=== PATIENT | female | born 1985 | race Caucasian/White ===

== ENCOUNTER → 2018-09-16 | Outpatient (CLI) | payer MEDICAID | LOC: FIMAGING 15:43 | PROVIDERS: ATTEND Orthopaedic Surgery | DX: S83.512A Sprain of anterior cruciate ligament of left knee, initial encounter (principal); M94.8X6 Other specified disorders of cartilage, lower leg; M84.861 Other disorders of continuity of bone, right tibia ==

== ENCOUNTER 2018-11-10 06:01 | Day surgery (SDC) | payer MEDICAID ==
--- NOTE | 2018-11-09 20:57 | PDGENHP ---
History and Physical History and Physical: 33 yo female, presenting today for right knee ACL surgery By Dr. James for ACL rpr w/ HS Autograft after tearing her acl on 09/08/18. ALLERGIES Allergy/AdvReac Type Severity Reaction Status Date / Time No Known Allergies Allergy Verified 10/29/18 12:38 MEDS: 5-Htp 10/29/18 [Last Taken Unknown] Co Q-10 10/29/18 [Last Taken Unknown] Cod Liver Oil Softgel 10/29/18 [Last Taken Unknown] Creatine 10/29/18 [Last Taken Unknown] Mag Sulf 10/29/18 [Last Taken Unknown] Vitamin B Complex 10/29/18 [Last Taken Unknown] PMH denies FH: denies pertinent PE a&ox3 cvs: rrr resp: ctab msk: grossly nvid w/ brisk cap refill, grade 1 lachmans w/ a soft end point, minimal pivot shift A/p 33 yo female w/ right knee ACL full thickness tear on 09/08/18, here for right knee ACL surgery w/ hamstring autograft by dr. james. -proph: scd's, diana joyce, incentive spirometry -abx: ancef 2 grams IV pre op -RLE: wbat w/ crutches and brace -f/u 7-10 days post operatively in clinic for wound check, sooner with issues
[2018-11-10] MEDS ORDERED: ceFAZolin 2 GM/DEXTROSE 100 ML IV ONE (06:43)
[2018-11-10] MEDS ORDERED: LR 1,000 ML IV ONE (06:47)
--- NOTE | 2018-11-10 06:49 | PDHPUP ---
History & Physical Update H&P update statement: This history and physical update is based on an assessment of the patient which was completed after admission or registration (within 24 hours), but prior to the surgery/procedure. H&P update: H&P reviewed & patient examined, no change in patient's condition since H&P completed, changes noted
[2018-11-10] MEDS ORDERED: ROPIVACAINE HCL 20 MG/10 ML INJ EP ONE (06:53)
[2018-11-10] MEDS ORDERED: MIDAZOLAM 2 MG/2 ML VIAL IVP ONE (07:02)
--- NOTE | 2018-11-10 07:03 | PDANEPAE ---
ANE History of Present Illness right acl tear ANE Past Medical History - Cardiovascular History Hx Hypertension: No Hx Arrhythmias: No Hx Chest Pain: No Hx Coronary Artery / Peripheral Vascular Disease: No Hx CHF / Valvular Disease: No Hx Palpitations: No Cardiovascular History Comment: ? heart murmur - Pulmonary History Hx COPD: No Hx Asthma/Reactive Airway Disease: No Hx Recent Upper Respiratory Infection: No Hx Oxygen in Use at Home: No Hx Sleep Apnea: No Sleep Apnea Screening Result - Last Documented: Negative - Neurologic History Hx Cerebrovascular Accident: No Hx Seizures: No Hx Dementia: No - Endocrine History Hx Diabetes: No Hypothyroid: No Hyperthyroid: No Obesity: mild - Renal History Hx Renal Disorders: No - Liver History Hx Hepatic Disorders: No - Neurological & Psychiatric Hx Hx Neurological and Psychiatric Disorders: Yes Neurological / Psychiatric History Comment: anxiety - Cancer History Hx Cancer: No - Congenital Disorder History Hx Congenital Disorders: No - GI History GERD: no Hx Gastrointestinal Disorders: No - Other Health History 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 - Chronic Pain History Chronic Pain: No - Surgical History Prior Surgeries: none ANE Review of Systems Review of systems is: negative Review of Systems: - Exercise capacity Exercise capacity: >=4 METS METS (RN): 6 METS ANE Patient History - Allergies Allergies/Adverse Reactions: No Known Allergies Allergy (Verified 10/29/18 12:38) - Home Medications Home medications: home medication list seen and reviewed Home Medications: 5-Htp 10/29/18 [Last Taken 11/03/18] Co Q-10 10/29/18 [Last Taken 11/03/18] Cod Liver Oil Softgel 10/29/18 [Last Taken 11/03/18] Creatine 10/29/18 [Last Taken 11/03/18] Mag Sulf 10/29/18 [Last Taken 11/02/18] Vitamin B Complex 10/29/18 [Last Taken 11/03/18] - NPO status NPO Status: no food or drink >8 hours - Smoking Hx Smoking Status: Former smoker - Family Anes Hx Family Anes Hx: none Family Hx Anesthesia Complications: none ANE Labs/Vital Signs - Vital Signs Height: 171.45 cm Weight: 88.451 kg ANE Physical Exam - Airway Neck exam: FROM Mallampati Score: Class 2 Mouth exam: normal dental/mouth exam - Pulmonary Pulmonary: no respiratory distress, clear to auscultation - Cardiovascular Cardiovascular: regular rate and rhythym - ASA Status ASA Status: I ANE Anesthesia Plan Anesthesia Plan: GA w LMA
[2018-11-10] MEDS ORDERED: PROPOFOL/EMULSION 500 MG/50 ML BOTTLE IV ONE ×3 (07:11→08:34)
[2018-11-10] MEDS ORDERED: fentaNYL 100 MCG/2 ML INJ ONE ×3 (07:14→09:24)
[2018-11-10] MEDS ORDERED: PROPOFOL 200 MG/20 ML VIAL ONE (07:19)
[2018-11-10] MEDS ORDERED: DEXAMETHASONE 4 MG/ML VIAL ONE ×2 (07:21)
[2018-11-10] MEDS ORDERED: ONDANSETRON 4 MG/2 ML VIAL ONE (07:34)
[2018-11-10] MEDS ORDERED: PROMETHAZINE HCL 25 MG/ML INJ IVP PRN (08:16)
[2018-11-10] MEDS ORDERED: LR 500 ML IV PRN (08:16)
[2018-11-10] MEDS ORDERED: oxyCODONE IR 5 MG TAB PO PRN (08:16)
[2018-11-10] MEDS ORDERED: DEXAMETHASONE 4 MG/ML VIAL IVP PRN (08:16)
[2018-11-10] MEDS ORDERED: PHENYLEPHRINE HCL 100 MCG/ML SYR IVP PRN (08:16)
[2018-11-10] MEDS ORDERED: MEPERIDINE 25 MG/0.5 ML AMP IVP PRN (08:16)
[2018-11-10] MEDS ORDERED: NALOXONE HCL 0.4 MG/ML INJ IVP PRN (08:16)
[2018-11-10] MEDS ORDERED: LABETALOL HCL 5 MG/ML 20 ML MDV IVP PRN (08:16)
[2018-11-10] MEDS ORDERED: METOCLOPRAMIDE 10 MG/2 ML VIAL IVP PRN (08:16)
[2018-11-10] MEDS ORDERED: NS 500 ML IV PRN (08:16)
[2018-11-10] MEDS ORDERED: ACETAMINOPHEN 500 MG TAB PO PRN (08:16)
[2018-11-10] MEDS ORDERED: ALBUTEROL 3 ML DEYVIAL IH PRN (08:16)
[2018-11-10] MEDS ORDERED: ONDANSETRON 4 MG/2 ML VIAL IVP PRN (08:16)
[2018-11-10] MEDS ORDERED: KETOROLAC 30 MG/1 ML SDV ONE (09:00)
[2018-11-10] MEDS ORDERED: OXYCODONE/APAP 5/325 TAB PO PRN (09:08)
[2018-11-10] MEDS ORDERED: ACETAMINOPHEN 325 MG TAB PO PRN (09:08)
[2018-11-10] MEDS ORDERED: HYDROCODONE/APAP 5/325 TAB PO PRN (09:08)
[2018-11-10] MEDS ORDERED: D5W 1/2 NS W/ 20 KCl/L 1,000 ML IV SCH (09:15)
--- NOTE | 2018-11-10 09:22 | POSTOPPROG ---
Post Op Note Date of Operation: 11/10/18 Surgeon: Nabila James Radioisotope Technician: abhijit yoon pa-c Anesthesia: GET(General Endotracheal) Pre-op Diagnosis: right knee acl rupture Post-op Diagnosis: right knee acl rupture Indication: full thickness tear right knee acl Procedure: right knee acl reconstruction w/ HS auto, med/lat part menisectomy Inf/Abcess present in the surg proc area at time of surgery?: No EBL: Minimal Drains: Other (none)
[2018-11-10] MEDS: fentaNYL 100 MCG/2 ML INJ IVP PRN ×2 (09:25→09:32)
[2018-11-10] MEDS ORDERED: HYDROmorphONE/DILAUDID 2 MG/ML INJ ONE (09:47)
[2018-11-10] MEDS: HYDROmorphONE/DILAUDID 2 MG/ML INJ IVP PRN ×2 (09:49→10:16)
--- NOTE | 2018-11-10 11:33 | POSTANESTH ---
Post Anesthetic Evaluation Cardiovascular Status: Normal, Stable Respiratory Status: Normal, Stable Level of Consciousness/Mental Status: Can Participate in Eval Pain Control: Adequate, Prn Tx Ordered Nausea/Vomiting Control: Adequate, Prn Tx Ordered Complications Possibly Related to Anesthesia: None Noted
--- NOTE | 2018-11-10 12:30 | GOP ---
[f rep st] OPERATIVE REPORT DATE OF OPERATION: 11/10/2018 SURGEON: Nabila James MD FLORICULTURE PROFESSOR: MARCELINA Mejía. Medically required for positioning of the leg during arthroscopic ACL reconstruction and careful retraction of vital neurovascular structures during semitendinosus harvest . PREOPERATIVE DIAGNOSIS: 1. Right knee full-thickness anterior cruciate ligament tear. 2. Medial and lateral meniscal tears. 3. Synovitis. 4. Loose body. 5. Patellofemoral chondromalacia and arthritis. POSTOPERATIVE DIAGNOSIS: 1. Right knee full-thickness anterior cruciate ligament tear. 2. Medial and lateral meniscal tears. 3. Synovitis. 4. Loose body. 5. Patellofemoral chondromalacia and arthritis. PROCEDURE PERFORMED: 1. Arthroscopic anterior cruciate ligament reconstruction with a quadrupled semitendinosus hamstring autograft. 2. Arthroscopic partial medial and lateral meniscectomy. 3. Arthroscopic extensive synovectomy. 4. Arthroscopic patellar chondroplasty. FINDINGS: ESTIMATED BLOOD LOSS: Minimal. INDICATIONS: A 33-year-old female injured her right knee. Clinical, radiographic and MRI confirm AC L tear. She complains of instability and agrees for stabilization of the right knee. The patient identified in the preoperative holding area. Consent, laterality and preoperative antibi otics were confirmed delivered. All questions were answered. She had full range of motion of her kn ee. Her skin looked healthy. Her family was at the bedside. DESCRIPTION OF PROCEDURE: The patient was brought into the operating room. Adductor canal block by Anesthesia. General anesthesia. All extremities well padded. Right thigh tourniquet placed. Right lower extremity prepped and draped in the usual sterile fashion. Surgical time-out was performed. Hamstring harvest ensued without the use of a tourniquet. Figure-of-4 position. Pes anserinus incis ion. Sharp dissection down with careful cautery of all bleeders. Sartorius fascia was taken in line . Semitendinosus felt robust and we isolated this, freed up the gastroc adhesions. We had a nice ro bust graft, took this onto the back table and fashioned a graft length 10 mm x 66 mm at a 20 Sr m eter tension. We marked 20 mm rossi on either side on the reverse tensioning TightRope sides. Esmarch exsanguination ensued. The arthroscopic portion ensued. Standard 2-portal technique diagnos tic arthroscopy included grade 3 fibrillation of the patella. Grade 1 softening of the trochlea. Th e medial compartment was grade 1 softening cartilage. Inner 3rd fraying of the meniscus. ACL was co mpletely torn with a cyclops lesion. PCL was intact. Lateral compartment was grade 1 with some fiss uring of the lateral tibial plateau and meniscal root fraying of the lateral meniscus. Synovitis thr oughout. Therapeutic arthroscopy included partial medial and lateral meniscectomy. Less than 10% of the inner rim removed. Extensive synovectomy of the anterior medial and lateral compartment. We did an ACL d ebridement. Marked the posterior bifurcate ridge as well as tangential to the anterior horn of the l ateral meniscus. We did have to do a notchplasty about 3 mm secondary to a stenotic V-shaped notch. We drilled with a 10 mm flip cutter two 25 mm holes and parked loops of suture and retrieved these ou t easily. Passed the graft to predetermined 20 mm rossi. Did a flexion-extension cycle of about 20. Then with a reverse Leona in full extension, we tightened down the buttons with multiple half hit ches. We were happy in 90 degrees flexion and full extension without any graft impingement. All the scopic fluid and debris was removed. 30 cc of 0.2% ropivacaine was used with 10 cc into the joint a nd 20 cc around the portal sites and the hamstring harvest site. We used 3-0 Monocryl and Dermabond for the hamstring harvest site and then nylon for the portal sites. Sterile dressing was applied with Xeroform, 4x4s, ABD, and sterile MICHELET. IMPLANTS USED: 2 reverse tensioning Tightropes on either side on the femur and tibia with a GraftLin k construct. 66 mm running length of the quadrupled semitendinosus with a 10 mm diameter set at a 20 Sr meter tension. COMPLICATIONS: None. TOTAL TOURNIQUET TIME: 50 minutes. DISPOSITION: Extubated and awake to the PACU in stable condition. /[id number]/MODL
[2018-11-10 12:58] VITALS: BP 122/79
== END 2018-11-10 13:20 | disposition home or self-care (01) ==
LOC: FSGY 06:01
PROVIDERS: ATTEND Orthopaedic Surgery
DX: S83.511A Sprain of anterior cruciate ligament of right knee, initial encounter (principal); S83.281A Other tear of lateral meniscus, current injury, right knee, initial encounter; S83.241A Other tear of medial meniscus, current injury, right knee, initial encounter; M22.41 Chondromalacia patellae, right knee; X58.XXXA Exposure to other specified factors, initial encounter; Y92.9 Unspecified place or not applicable; Y93.9 Activity, unspecified
CPT/HCPCS: C1713; J0690; J1100; J1170; J1885; J2250; J2405; J2704; J2795; J3010